=== PATIENT | female | born 1975 | race Asian ===

== ENCOUNTER 2016-11-24 10:00 | Emergency (ER) | payer OTHER ==
[2016-11-24 10:04] VITALS: BP 111/68; PULSE 84; RESP 18; TEMP 98.2; O2SAT 97
--- NOTE | 2016-11-24 10:07 | EDPHY ---
H & P HPI/ROS: CHIEF COMPLAINT: Finger laceration HISTORY OF PRESENT ILLNESS: 41-year-old female with up-to-date tetanus via private vehicle to the ER complaining of acute laceration to her left 5th digit when she picked up a sharp knife at [employer] school this morning. No paresthesia. No sensory or motor deficit PHYSICAL EXAM (Prior to examination, patient consented to physical exam, hands were washed and my usual and customary physical exam procedures followed) 1) GENERAL: Well-developed, well-nourished, alert and oriented. Appears to be in no acute distress. 2) HEAD: Normocephalic 3) HEENT: sclera anicteric 4) LUNGS: Breathing comfortably. 5) SKIN: left 5th digit palmar aspect PIP joint transverse 1 cm laceration 6) MUSCULOSKELETAL: flexor, extensor function independently tested at the MCP, PIP, DIP and no deficits are noted on exam. 7) NEUROLOGIC: Full sensation distally including 2 point discrimination. Smoking Status: Never smoked Constitutional: Initial Vital Signs Temperature (C) 36.8 C 11/24/16 10:01 Heart Rate 84 11/24/16 10:01 Respiratory Rate 18 11/24/16 10:01 Blood Pressure 111/68 11/24/16 10:01 O2 Sat (%) 97 11/24/16 10:01 O2 Delivery Mode Room Air Allergies/Adverse Reactions: No Known Allergies Allergy (Verified 11/24/16 10:01) Home Medications: Medication Instructions Recorded NK [No Known Home Meds] 11/24/16 MDM/Departure - MDM Procedures: Procedure: Laceration repair. I explained the indications, risks and benefits for both laceration repair and anesthetic administration. Verbal consent was obtained from the patient . The laceration on the left 5th digit was anesthetized using 0.5% bupivicaine without epinephrine digital nerve block. After anesthetic administered the patient was observed for a period of time and had no apparent adverse effects. The wound was cleaned, prepped, draped in normal sterile fashion and explored to its base. No foreign body seen, no foreign bodies palpated. There were no deep structures involved. No tendon injury was identified. The wound was repaired with 4 simple interrupted 5 O Prolene suture. The wound repair was simple. The procedure was performed by myself. Patient has been informed that scarring will occur, although efforts have been made to minimize this. - Depart Disposition: Home, Routine, Self-Care Clinical Impression: Finger laceration Qualifiers: Encounter type: initial encounter Qualified Code(s): S61.219A - Laceration without foreign body of unspecified finger without damage to nail, initial encounter Condition: Good Instructions: Care For Your Stitches (ED), Laceration (ED) Additional Instructions: Return to the ER if you develop redness, swelling, discharge, warmth to the wound, red streaks going up your arm or any other symptoms that concern you. Referrals: Return, to the ER in 10 days for suture removal [Other] - 12/04/16
== END 2016-11-24 10:47 | disposition home or self-care (01) ==
PROC: 0HQGXZZ Repair Left Hand Skin, External Approach (ICD-10-PCS; principal; 2016-11-24)
DX: S61.217A Laceration without foreign body of left little finger without damage to nail, initial encounter (principal); W26.0XXA Contact with knife, initial encounter; Y92.218 Other school as the place of occurrence of the external cause

== ENCOUNTER → 2017-02-14 | Outpatient (CLI) | payer OTHER | LOC: FIMAGING 13:25 | PROVIDERS: ATTEND Family Medicine | DX: Z12.31 Encounter for screening mammogram for malignant neoplasm of breast (principal); Z80.3 Family history of malignant neoplasm of breast | CPT/HCPCS: G0202 ==

== ENCOUNTER 2017-03-30 05:40 | Emergency (ER) | payer OTHER ==
[2017-03-30] MEDS ORDERED: NS 1,000 ML IV ONE ×3 (05:54→06:26)
--- NOTE | 2017-03-30 05:56 | EDPHY ---
H & P Time Seen by Provider: 03/30/17 05:46 HPI/ROS: 42 yo F presents c/o diarrhea that began about 90 minutes after eating some Sushi from [employer]. No vomiting, no fever. Pt states she has had diarrhea all night, likely greater than 12 times. She denies blood in her stool. she is not currently on antibiotics. She states she rarely gets diarrhea, no one else at home is sick at this time. Review of systems As per HPI General no fever no chills no weakness HEENT no eye pain no eye discharge. No eye redness, no sore throat Respiratory no cough, no shortness of breath Cardiac no chest pain, no peripheral edema GI pos abdominal pain, positive diarrhea, no constipation, no nausea, no vomiting no flank pain, no hematuria, no dysuria Musculoskeletal no myalgias, no joint pain Heme no easy bruising, no easy bleeding Endo no polyuria, no polydipsia Skin no rashes, no pruritus Neuro no syncope, no dizziness, no headaches Psych is no suicidal ideation, no homicidal ideation Past Medical/Surgical History: gerd Social History: Lives with family No alcohol or drug use Smoking Status: Never smoked Physical Exam: 42-year-old female HEENT atraumatic normocephalic, extraocular muscles intact, anicteric Oropharynx negative for erythema negative exudate, tolerating her own secretions Neck supple no meningismus Lungs clear to auscultation bilaterally Heart regular rate and rhythm without murmur rub or gallop Abdomen nondistended hyperactive bowel sounds soft, mild diffuse tenderness, no rebound no guarding Back no CVA tenderness, no step-offs, no spinal tenderness Extremities no cyanosis clubbing or edema Neuro alert and oriented, no focal deficits Constitutional: Initial Vital Signs Temperature (C) 36.5 C 03/30/17 05:43 Heart Rate 72 03/30/17 05:43 Respiratory Rate 16 03/30/17 05:43 Blood Pressure 116/73 03/30/17 05:43 O2 Sat (%) 95 03/30/17 05:43 O2 Delivery Mode Room Air Allergies/Adverse Reactions: No Known Allergies Allergy (Verified 03/30/17 05:43) Home Medications: Medication Instructions Recorded NK [No Known Home Meds] 11/24/16 Medical Decision Making ED Course/Re-evaluation: Patient seen and evaluated for diarrhea. Differential diagnosis considered Viral enteritis, clostridia difficile, bacterial enteritis, diverticulitis, irritable bowel Labs CBC within normal limits CMP within normal limits Lipase negative Stool studies ordered Patient given IV fluids, Toradol 30. Impression Diarrhea, likely viral Plan Symptomatic care Follow up with primary care physician - Data Points Laboratory Results: Laboratory Results 03/30/17 05:55 03/30/17 05:55 03/30/17 03/30/17 03/30/17 05:55 05:55 05:55 WBC 8.85 10^3/uL 10^3/uL (3.80-9.50) RBC 4.68 10^6/uL 10^6/uL (4.18-5.33) Hgb 13.6 g/dL g/dL (12.6-16.3) Hct 40.9 % % (38.0-47.0) MCV 87.4 fL fL (81.5-99.8) MCH 29.1 pg pg (27.9-34.1) MCHC 33.3 g/dL g/dL (32.4-36.7) RDW 13.2 % % (11.5-15.2) Plt Count 309 10^3/uL 10^3/uL (150-400) MPV 10.2 fL fL (8.7-11.7) Neut % (Auto) 74.8 % H % (39.3-74.2) Lymph % (Auto) 19.1 % % (15.0-45.0) Walsh % (Auto) 5.0 % % (4.5-13.0) Eos % (Auto) 0.3 % L % (0.6-7.6) Baso % (Auto) 0.6 % % (0.3-1.7) Nucleat RBC Rel Count 0.0 % % (0.0-0.2) Absolute Neuts (auto) 6.62 10^3/uL H 10^3/uL (1.70-6.50) Absolute Lymphs (auto) 1.69 10^3/uL 10^3/uL (1.00-3.00) Absolute Monos (auto) 0.44 10^3/uL 10^3/uL (0.30-0.80) Absolute Eos (auto) 0.03 10^3/uL 10^3/uL (0.03-0.40) Absolute Basos (auto) 0.05 10^3/uL 10^3/uL (0.02-0.10) Absolute Nucleated RBC 0.00 10^3/uL 10^3/uL (0-0.01) Immature Gran % 0.2 % % (0.0-1.1) Immature Gran # 0.02 10^3/uL 10^3/uL (0.00-0.10) Sodium 141 mEq/L mEq/L (134-144) Potassium 4.2 mEq/L mEq/L (3.5-5.2) Chloride 106 mEq/L mEq/L (97-110) Carbon Dioxide 22 mEq/l mEq/l (22-31) Anion Gap 13 mEq/L mEq/L (8-16) BUN 12 mg/dL mg/dL (7-23) Creatinine 0.6 mg/dL mg/dL (0.6-1.0) Estimated GFR > 60 Glucose 112 mg/dL H mg/dL (70-100) Calcium 9.2 mg/dL mg/dL (8.5-10.4) Total Bilirubin 0.8 mg/dL mg/dL (0.1-1.4) AST 16 IU/L IU/L (14-46) ALT 30 IU/L IU/L (9-52) Alkaline Phosphatase 68 IU/L IU/L (38-126) Total Protein 7.0 g/dL g/dL (6.3-8.2) Albumin 4.2 g/dL g/dL (3.5-5.0) Lipase 57 IU/L IU/L (23-300) Beta HCG, Qual NEGATIVE Medications Given: Discontinued Medications Sodium Chloride (Ns) 1,000 mls @ 0 mls/hr IV EDNOW ONE; Wide Open PRN Reason: Protocol Stop: 03/30/17 05:55 Last Admin: 03/30/17 05:58 Dose: 1,000 mls Sodium Chloride (Ns) 1,000 mls @ 0 mls/hr IV ONCE ONE; Wide Open PRN Reason: Protocol Stop: 03/30/17 05:56 Last Admin: 03/30/17 05:57 Dose: Not Given Sodium Chloride (Ns) 1,000 mls @ 0 mls/hr IV ONCE ONE PRN Reason: Wide Open Stop: 08/31/17 06:27 Last Admin: 03/30/17 06:35 Dose: 1,000 mls Ketorolac Tromethamine (Toradol) 30 mg IVP EDNOW ONE Stop: 03/30/17 06:26 Last Admin: 03/30/17 06:38 Dose: 30 mg Departure - Departure Disposition: Home, Routine, Self-Care Clinical Impression: Diarrhea Condition: Good Instructions: Acute Diarrhea (ED), Bismuth Subsalicylate (By mouth)
[2017-03-30 06:06] LABS: % IMMATURE GRANULYOCYTES 0.2 % (0.0-1.1); ABSOLUTE IMMATURE GRANULOCYTES 0.02 10^3/uL (0.00-0.10); ADD DIFF? NO; ADD MORPH? NO; ADD SCAN? NO; ATYPICAL LYMPHOCYTE FLAG 0 (0-99); FRAGMENT RBC FLAG 0 (0-99); HEMATOCRIT 40.9 % (38.0-47.0); HEMOGLOBIN 13.6 g/dL (12.6-16.3); LEFT SHIFT FLG 0 (0-99); LIPEMIA HEMOLYSIS FLAG 80 (0-99); MEAN CELL HEMOGLOBIN 29.1 pg (27.9-34.1); MEAN CELL HEMOGLOBIN CONCENTR. 33.3 g/dL (32.4-36.7); MEAN CELL VOLUME 87.4 fL (81.5-99.8); MEAN PLATELET VOLUME 10.2 fL (8.7-11.7); PLATELET CLUMPS FLAG 0 (0-99); PLATELET COUNT 309 10^3/uL (150-400); RED BLOOD CELL COUNT 4.68 10^6/uL (4.18-5.33); RED CELL DISTRIBUTION WIDTH 13.2 % (11.5-15.2)
[2017-03-30 06:18] LABS: ALANINE AMINOTRANSFERASE 30 IU/L (9-52); ALBUMIN 4.2 g/dL (3.5-5.0); ALKALINE PHOSPHATASE 68 IU/L (38-126); ANION GAP 13 mEq/L (8-16); ASPARTATE AMINOTRANSFERASE 16 IU/L (14-46); BILIRUBIN,TOTAL 0.8 mg/dL (0.1-1.4); CALCIUM 9.2 mg/dL (8.5-10.4); CARBON DIOXIDE 22 mEq/l (22-31); CHLORIDE 106 mEq/L (97-110); CREATININE 0.6 mg/dL (0.6-1.0); GLOMERULAR FILTRATION RATE > 60; GLUCOSE 112 mg/dL (70-100); POTASSIUM 4.2 mEq/L (3.5-5.2); SODIUM 141 mEq/L (134-144)
[2017-03-30] MEDS ORDERED: KETOROLAC 30 MG/1 ML SDV IVP ONE (06:25)
[2017-03-30 07:02] VITALS: BP 108/68; PULSE 84; RESP 14; TEMP 98.1; O2SAT 97
[2017-03-30] MEDS ORDERED: ONDANSETRON 4MG PREPACK#2 BTL TAKEHOME ONE (07:02)
== END 2017-03-30 07:01 | disposition home or self-care (01) ==
LOC: CED 05:40
DX: R19.7 Diarrhea, unspecified (principal); E86.9 Volume depletion, unspecified
CPT/HCPCS: 80053-PO; 83690-PO; 84703-PO; 85025-PO; 96374; J1885

== ENCOUNTER 2017-09-05 15:44 | Emergency (ER) | payer OTHER ==
[2017-09-05 15:53] VITALS: RESP 18; TEMP 98; O2SAT 97
--- NOTE | 2017-09-05 16:10 | CPEKG ---
Heart Rate: 59 RR Interval: 1017 P-R Interval: 156 QRSD Interval: 80 QT Interval: 432 QTC Interval: 428 P [place]: 57 QRS [place]: 44 T Wave [place]: 58 EKG Severity - NORMAL ECG - EKG Impression: SINUS RHYTHM Electronically Signed By: Shayy Galvan 05-Sep-2017 19:17:19
--- NOTE | 2017-09-05 16:22 | EDPHY ---
H & P Stated Complaint: c/o HR palpitations x 10 denies CP/SOB HPI/ROS: CHIEF COMPLAINT: Palpitations HISTORY OF PRESENT ILLNESS: This is a healthy 42-year-old who presents with palpitations. These began about 10 days ago while she was at rest. They last a minute or so and occur once daily on average. When she is feeling palpitations she has a sensation of chest pressure. She does not describe chest pain. She does not feel short of breath and the palpitations are relieved by deep breathing. She has not had dizziness. This is a new experience for her. She is not sophia menopausal. She states that she has had a heart murmur since . She was evaluated by Dr. Donis for this a couple of years ago with no subsequent treatments or restrictions. REVIEW OF SYSTEMS: A ten point review of systems was performed and is negative with the exception of the items mentioned in the HPI. 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 She does not use tobacco products. She drinks alcohol socially. General Appearance: Alert. Vital signs reviewed. Blood pressure 98/78. A focused exam was performed. Respiratory: Lungs are clear to auscultation; no wheezes, rales, or rhonchi. Cardiovascular: Regular rate and rhythm; no murmur, rub, or gallop. No heart murmur appreciated. Gastrointestinal: Abdomen is soft and nontender, no masses or organomegaly. Skin: Warm and dry, no rashes on exposed skin, normal color. Extremities: No lower extremity edema. Neurological: Alert and oriented. Moving all four extremities easily and equally. Psychiatric: Normal affect. - Personal History LMP (Females 10-55): 15-21 Days Ago Current Tetanus Diphtheria and Acellular Pertussis (TDAP): Yes - Medical/Surgical History Hx Asthma: No Hx Chronic Respiratory Disease: No Hx Diabetes: No Hx Cardiac Disease: No Hx Renal Disease: No Hx Cirrhosis: No Hx Alcoholism: No Hx HIV/AIDS: No Hx Splenectomy or Spleen Trauma: No Other PMH: Csection . - Social History Smoking Status: Never smoked Constitutional: Initial Vital Signs Temperature (C) 36.6 C 09/05/17 15:51 Heart Rate 63 09/05/17 15:51 Respiratory Rate 18 09/05/17 15:51 Blood Pressure 98/78 L 09/05/17 15:51 O2 Sat (%) 97 09/05/17 15:51 O2 Delivery Mode Room Air Allergies/Adverse Reactions: No Known Allergies Allergy (Verified 03/30/17 05:43) Home Medications: Medication Instructions Recorded NK [No Known Home Meds] 11/24/16 Medical Decision Making - Diagnostics EKG Interpretation: 12 lead EKG is interpreted in Trace master View by emergency department physician. Normal sinus rhythm. ED Course/Re-evaluation: 42-year-old female who reports palpitations. She has a normal EKG in the emergency department. She has scheduled and appointment with her doctor. She does not desire additional emergency department workup. We talked about drawing blood to check electrolytes. She prefers to wait until she sees her PCP. We reviewed the danger signs that should prompt her to be re-evaluated immediately I feel that her approache is reasonable. She is not currently experiencing palpitations and I do not think that she needs emergency department evaluation. Differential Diagnosis: I considered a differential diagnosis that includes palpitations, arrhythmia, electrolyte abnormality, anxiety. Departure - Departure Disposition: Home, Routine, Self-Care Clinical Impression: Palpitations Condition: Good Instructions: Heart Palpitations (ED) Additional Instructions: See Dr. Lara next week as planned. If you have a prolonged episode of a rapid heart rate and began to feel short of breath or have chest pain, you should be re-evaluated. In general, the problem that you describe is not dangerous. However, it is important that you follow up and have this checked out further. Referrals: Estephanie Lara MD [Primary Care Provider] - As per Instructions
[2017-09-05 16:56] VITALS: BP 100/62; PULSE 67
== END 2017-09-05 16:40 | disposition home or self-care (01) ==
LOC: CED 15:44
DX: R00.2 Palpitations (principal)

== ENCOUNTER 2017-11-22 19:01 | Emergency (ER) | payer OTHER ==
[2017-11-22 19:11] VITALS: BP 100/68
--- NOTE | 2017-11-22 19:25 | EDPHY ---
H & P Stated Complaint: got out bed quickly, felt slightly dizzy and hit left side of face. Time Seen by Provider: 11/22/17 19:13 HPI/ROS: CHIEF COMPLAINT: Concussion, eye pain HISTORY OF PRESENT ILLNESS: The patient is a 42-year-old female with a history of low blood pressure who stood up quickly Monday morning felt lightheaded and fell. She hit her forehead and left eyebrow on bridge of her nose on the bed. She did not lose consciousness. She has had a mild headache ever since that improved with ibuprofen. She has felt slightly nauseous but has not vomited. No seizure-like activity. No altered mental status. She has been exercising for the last 2 days. She also has a foreign body sensation in her left eye and thought she might have an eyelash stuck but cannot find one. REVIEW OF SYSTEMS: Constitutional: denies: chills, fever, recent illness, recent injury EENTM: See HPI denies: blurred vision, double vision, nose congestion Respiratory: denies: cough, shortness of breath Cardiac: denies: chest pain, irregular heart rate, lightheadedness, palpitations Gastrointestinal/Abdominal: denies: abdominal pain, diarrhea, nausea, vomiting, blood streaked stools Genitourinary: denies: dysuria, frequency, hematuria, pain Musculoskeletal: denies: joint pain, muscle pain Skin: denies: lesions, rash, jaundice, bruising Neurological: See HPI denies: numbness, paresthesia, tingling, dizziness, weakness Hematologic/Lymphatic: denies: blood clots, easy bleeding, easy bruising Immunologic/allergic: denies: HIV/AIDS, transplant EXAM: GENERAL: Well-appearing, well-nourished and in no acute distress. HEAD: Very minor contusion above left eyebrow, normocephalic. EYES: Pupils equal round and reactive to light, extraocular movements intact, sclera anicteric, conjunctiva are normal. ENT: TMs normal, nares patent, oropharynx clear without exudates. Moist mucous membranes. NECK: Normal range of motion, supple without lymphadenopathy or JVD. LUNGS: Breath sounds clear to auscultation bilaterally and equal. No wheezes rales or rhonchi. HEART: Regular rate and rhythm without murmurs, rubs or gallops. ABDOMEN: Soft, nontender, normoactive bowel sounds. No guarding, no rebound. No masses appreciated. BACK: No CVA tenderness, no spinal tenderness, step-offs or deformities EXTREMITIES: Normal range of motion, no pitting or edema. No clubbing or cyanosis. NEUROLOGICAL: Cranial nerves II through XII grossly intact. Normal speech, normal gait. 5/5 strength, normal movement in all extremities, normal sensation PSYCH: Normal mood, normal affect. SKIN: Warm, dry, normal turgor, no visible rashes or lesions. Source: Patient Exam Limitations: No limitations - Personal History LMP (Females 10-55): 8-14 Days Ago - Medical/Surgical History Hx Asthma: No Hx Chronic Respiratory Disease: No Hx Diabetes: No Hx Cardiac Disease: No Hx Renal Disease: No Hx Cirrhosis: No Hx Alcoholism: No Hx HIV/AIDS: No Hx Splenectomy or Spleen Trauma: No Other PMH: Csection . - Social History Smoking Status: Never smoked Constitutional: Initial Vital Signs Temperature (C) 36.8 C 11/22/17 19:08 Heart Rate 75 11/22/17 19:08 Respiratory Rate 18 11/22/17 19:08 Blood Pressure 100/68 11/22/17 19:08 O2 Sat (%) 98 11/22/17 19:08 O2 Delivery Mode Room Air Allergies/Adverse Reactions: No Known Allergies Allergy (Verified 11/22/17 19:08) Home Medications: Medication Instructions Recorded NK [No Known Home Meds] 11/24/16 Medical Decision Making ED Course/Re-evaluation: Patient has symptoms consistent with concussion. We discussed CT and I offered to perform 1 but she declines. It is been more than 2 days since her injury which is reassuring. 7:30 p.m. I stained the patient's eyes with fluorescein. There is a very faint abrasion that seems to be healing just at the edge of her cornea. I suspect that this is the reason for the foreign body sensation that she has. Antibiotics are unlikely to be helpful at this point because it is already essentially healed. We discussed follow-up and indications for returning. She is pleased and eager to go home. We discussed rest and stepwise return to activity for concussions. Differential Diagnosis: Partial list of the Differential diagnosis considered include but were not limited to; syncope, concussion, corneal abrasion and although unlikely based on the history and physical exam, I also considered fracture, intracranial injury, cervical spine injury, arrhythmia, acute coronary disease. I discussed these differential diagnoses and the plan with the patient as well as the usual and expected course. The patient understands that the diagnosis is provisional and that in medicine we are not always correct and that further workup is often warranted. Usual and customary warnings were given. All of the patient's questions were answered. The patient was instructed to return to the emergency department should the symptoms at all worsen or return, otherwise to followup with the physician as we discussed. Departure - Departure Disposition: Home, Routine, Self-Care Clinical Impression: Concussion Qualifiers: Encounter type: initial encounter Loss of consciousness presence/duration: without LOC Qualified Code(s): S06.0X0A - Concussion without loss of consciousness, initial encounter Condition: Fair Instructions: Concussion (ED) Referrals: Estephanie Lara MD [Primary Care Provider] - As per Instructions
[2017-11-22] MEDS ORDERED: FLUORESCEIN SOD/BENOXINATE HCL 20 DROPS/ML OPHT.BTL ONE ×2 (19:26→19:30)
[2017-11-22] MEDS ORDERED: PROPARACAINE 0.5% 15 ML OPHT DROP ONE (19:27)
== END 2017-11-22 19:43 | disposition home or self-care (01) ==
LOC: CED 19:01
DX: S06.0X0A Concussion without loss of consciousness, initial encounter (principal); W01.198A Fall on same level from slipping, tripping and stumbling with subsequent striking against other object, initial encounter

== ENCOUNTER → 2018-02-26 | Outpatient (CLI) | payer OTHER | LOC: CIMAGING 15:28 | PROVIDERS: ATTEND Family Medicine | DX: R05 Cough (principal); R06.00 Dyspnea, unspecified; R53.83 Other fatigue; R91.1 Solitary pulmonary nodule | CPT/HCPCS: 71046-PO ==

== ENCOUNTER → 2018-05-02 | Outpatient (CLI) | payer OTHER | LOC: CIMAGING 08:00 | PROVIDERS: ATTEND Family Medicine | DX: J98.4 Other disorders of lung (principal) | CPT/HCPCS: 71046-PO ==

== ENCOUNTER → 2018-05-15 | Outpatient (CLI) | payer OTHER | LOC: FIMAGING 08:48 | PROVIDERS: ATTEND Family Medicine | DX: Z12.31 Encounter for screening mammogram for malignant neoplasm of breast (principal); R91.1 Solitary pulmonary nodule; Z80.3 Family history of malignant neoplasm of breast ==

== ENCOUNTER 2018-05-28 22:51 | Emergency (ER) | payer OTHER ==
--- NOTE | 2018-05-28 23:30 | EDPHY ---
H & P Stated Complaint: N/V diffuse abd pain Time Seen by Provider: 05/28/18 23:13 HPI/ROS: CHIEF COMPLAINT: Abrupt onset of nausea and vomiting without diarrhea however, with severe fatigue HISTORY OF PRESENT ILLNESS: This is a previously healthy 43-year-old female who complains of being well at dinner. She only ate a banana as that is her custom to eat very lightly in the evening meal. Furthermore she went to sleep early at 8:30 p.m. As she had a restless night last night. Of note is that the restlessness last night was simply unrelated to [facility] visit as there is no physical symptoms with that. However, she woke up at 9:30 p.m. With a pronounced sense of nausea followed by upper abdominal distress without radiation to the back or the scapula. She subsequent vomited 4 times in the intervening 2 hr - none of this contained any blood like material. There has been no diarrhea. She feels uncharacteristic loosely fatigue as having trouble staying alert and focused. This has never been a problem for her in the past. No one else is sick. No recent travel. Travel: None Others: None Antibiotics: None Bad Food: None Bad Water: None Recent Surgery: None Of note however is that she did spend most the day cooking for a family get- together the making material that she put in the freezer for later preparation P: Not worse with the bumps, upper abdominal distress Q: Burning achy R: No radiation to back or epigastrium S: Mild to moderate, not better with vomiting T: Onset around 9:30 p.m. REVIEW OF SYSTEMS: Constitutional: No fever, no chills. Eyes: No discharge. ENT: No sore throat. Cardiovascular: No chest pain, no palpitations. Respiratory: No cough, shortness of breath, or wheezing. Gastrointestinal: See above Genitourinary: No hematuria or frequency. Musculoskeletal: No back pain. Skin: No rashes. Neurological: No headache, but does have pronounced fatigue. A 10 system review of systems was performed and is negative except for the noted findings in the HPI. Source: Patient Exam Limitations: No limitations - Personal History LMP (Females 10-55): 1-7 Days Ago Current Tetanus/Diphtheria Vaccine: Unsure Current Tetanus Diphtheria and Acellular Pertussis (TDAP): Unsure - Medical/Surgical History Hx Asthma: No Hx Chronic Respiratory Disease: No Hx Diabetes: No Hx Cardiac Disease: No Hx Renal Disease: No Hx Cirrhosis: No Hx Alcoholism: No Hx HIV/AIDS: No Hx Splenectomy or Spleen Trauma: No Other PMH: Csection - Family History Significant Family History: No pertinent family hx - Social History Smoking Status: Never smoked Alcohol Use: None Drug Use: None - Physical Exam Exam: General Appearance: Awake but lays on her side with her eyes closed and only over the exam for brief period time when directed to do so. She states she is having trouble staying fully awake. No distress, her emesis basin is empty at this time. Afebrile. Normal phonation. No respiratory distress. Eyes: Pupils equal and round no pallor or injection. No icterus ENT, Mouth: Mucous membranes slightly dry Pharynx without erythema or exudate. TM Clear. Neck: No adenopathy. Supple. No JVD. Trachea in midline. Respiratory: There are no retractions, lungs are clear to auscultation. Cardiovascular: Regular rate and rhythm, without murmur. Abdomen: Soft nondistended. No masses. There is however tenderness bilateral upper quadrants right more so than the left, with a Leos sign present on the right but no guarding. Neurological: Ox3. No motor weakness. Sensation intact. Gait nl. Skin: Warm and dry, no rashes. Musculoskeletal: No joint swelling. Extremities: No edema. Homans sign negative. No cords. Psychiatric: Normal affect. Patient is oriented X 3. There is no agitation Constitutional: Initial Vital Signs Temperature (C) 36.6 C 05/28/18 23:08 Heart Rate 80 05/28/18 23:08 Respiratory Rate 16 05/28/18 23:08 Blood Pressure 107/66 05/28/18 23:08 O2 Sat (%) 97 05/28/18 23:08 O2 Delivery Mode Room Air Allergies/Adverse Reactions: No Known Allergies Allergy (Verified 11/22/17 19:08) Home Medications: Medication Instructions Recorded Ondansetron Odt [Zofran Odt 4 mg 4 mg PO Q4 PRN #6 tab 05/29/18 (*)] Medical Decision Making - Diagnostics Imaging Results: Imaging Impressions Abdomen Ultrasound 05/29/18 00:15 Impression: 1. Normal sonographic appearance of the gallbladder. 2. There is no bile duct dilatation. 3. There is a simple hepatic cyst in the medial segment of the left hepatic lobe , and a likely-benign echogenic hemangioma in the posterior right hepatic lobe. Follow-up sonography in 6 months is recommended to assure stability of this latter finding. Findings and recommendations were discussed with Mckinley Torres MD at 1:06, on 05/29/2018. My ultrasound review: Ultrasound of the abdomen forego limited gallbladder study showed benign cyst with a most likely benign hemangioma that would require 6 month follow-up. However, specifics to tonight's visit there is no signs of gallbladder stones, sludge, edema or ductal dilatation. Interpretation by radiologist. Discussed with radiologist. Imaging: Discussed imaging studies w/ call center support consultant Radiologist ED Course/Re-evaluation: Initial management consisted of the following: A L of normal saline for volume depletion 8 mg of normal saline for nausea with distinct response Forty mEq of potassium liquid, due to her potassium of 3.1 Given the upper abdominal right more so than left discomfort with palpation in a Leos sign a ultrasound of the gallbladder was performed. This was negative as per Radiologist who called me with report, see above. Laboratory studies include the following: Minimally elevated white count of 10.6 Slightly elevated neutrophils Preserved kidney function Hypokalemia with potassium 3.1 Evidently the oral potassium and the fluids worked miraculously. As I entered the room for recheck her she was markedly improved sitting up, wide awake and actually asking me what was it that made her so fatigued earlier. My speculation is the adrenaline surge over stress response from her illness most likely shifted potassium intracellularly and is now normalized as she has improved. Nonetheless her exam remains essentially the same: Abdomen recheck: Bilateral upper quadrant tenderness mild the left mild-to- moderate on the right. Again worse when she takes deep breath. No rebound or guarding. Follow-up potassium after just 40 mg p. O. Showed market rise up to 4.2 reflective of a normalization of the potassium from having been shifted back out of the cell. Thereby, no further potassium testing is necessary. I discussed and outlined the clinical course as expected in the discharge instructions as well as means to avoid contamination of others in the food products that she provided today and finally need for follow-up ultrasound, per her PCP. Differential Diagnosis: Differential diagnosis includes, but is not limited to: Gastroenteritis, dehydration, diverticulitis, hepatitis, pancreatitis, renal colic, kidney stones, ureterolithiasis, cholecystitis, appendicitis, gastritis, mesenteric adenitis, food poisoning, bacterial dysentery. - Data Points Laboratory Results: 05/29/18 05/28/18 05/28/18 01:24 23:30 23:30 POC Sodium 143 mEq/L mEq/L 140 mEq/L mEq/L (135-145) (135-145) POC Potassium 4.2 mEq/L mEq/L 3.1 mEq/L L mEq/L (3.3-5.0) (3.3-5.0) POC Chloride 113.0 mEq/L H mEq/L 109.0 mEq/L mEq/L (97-110) (97-110) POC Total CO2 23 mEq/L mEq/L 24 mEq/L mEq/L (22-31) (22-31) POC BUN 10 mg/dL mg/dL 10 mg/dL mg/dL (7-23) (7-23) POC Creatinine 0.8 mg/dL mg/dL 0.8 mg/dL mg/dL (0.6-1.0) (0.6-1.0) POC Glucose 96 mg/dL mg/dL 98 mg/dL mg/dL (70-100) (70-100) POC Calcium 8.4 mg/dL L mg/dL 9.1 mg/dL mg/dL (8.5-10.4) (8.5-10.4) POC Total Bilirubin 0.9 mg/dL mg/dL 0.9 mg/dL mg/dL (0.1-1.4) (0.1-1.4) POC AST 26 IU/L IU/L 24 IU/L IU/L (14-46) (14-46) POC ALT 17 IU/L IU/L 17 IU/L IU/L (9-52) (9-52) POC Alk Phosphatase 51 IU/L IU/L 57 IU/L IU/L (38-126) (38-126) POC Total Protein 5.9 g/dL L g/dL 6.7 g/dL g/dL (6.3-8.2) (6.3-8.2) POC Albumin 3.4 g/dL L g/dL 3.9 g/dL g/dL (3.5-5.0) (3.5-5.0) Lipase 36 IU/L IU/L (23-300) Medications Given: Discontinued Medications Sodium Chloride (Ns) 1,000 mls @ 0 mls/hr IV EDNOW ONE; Wide Open PRN Reason: Protocol Stop: 05/28/18 23:34 Last Admin: 05/28/18 23:38 Dose: 1,000 mls Ondansetron HCl (Zofran) 8 mg IVP EDNOW ONE Stop: 05/28/18 23:32 Last Admin: 05/28/18 23:38 Dose: 8 mg Ondansetron HCl (Zofran Odt 4 Mg Prepack#2) 1 btl TAKEHOME EDNOW ONE Stop: 05/29/18 01:15 Last Admin: 05/29/18 01:27 Dose: 1 btl Potassium Chloride (Potassium Chloride Oral Liquid) 40 meq PO EDNOW ONE Stop: 05/28/18 23:58 Last Admin: 05/29/18 00:04 Dose: 40 meq Potassium Chloride (Potassium Chloride Oral Liquid) 40 meq PO EDNOW ONE Stop: 05/29/18 01:16 Last Admin: 05/29/18 01:27 Dose: 40 meq Point of Care Test Results: CBC CBC Collection Date 05/28/18 CBC Collection Time 23:23 WBC 10.6 RBC 4.65 HGB 13.5 HCT 40.2 PLT 229 Neut # 8.5 Neut 79.6 LYMPH # 1.6 LYMPH 15.5 Other WBC # 0.5 Other WBC 4.9 MCV 86.5 Chemistry 05/29/18 05/28/18 01:24 23:30 POC Sodium 143 mEq/L mEq/L 140 mEq/L mEq/L (135-145) (135-145) POC Potassium 4.2 mEq/L mEq/L 3.1 mEq/L L mEq/L (3.3-5.0) (3.3-5.0) POC Chloride 113.0 mEq/L H mEq/L 109.0 mEq/L mEq/L (97-110) (97-110) POC Total CO2 23 mEq/L mEq/L 24 mEq/L mEq/L (22-31) (22-31) POC BUN 10 mg/dL mg/dL 10 mg/dL mg/dL (7-23) (7-23) POC Creatinine 0.8 mg/dL mg/dL 0.8 mg/dL mg/dL (0.6-1.0) (0.6-1.0) POC Glucose 96 mg/dL mg/dL 98 mg/dL mg/dL (70-100) (70-100) POC Calcium 8.4 mg/dL L mg/dL 9.1 mg/dL mg/dL (8.5-10.4) (8.5-10.4) POC Total Bilirubin 0.9 mg/dL mg/dL 0.9 mg/dL mg/dL (0.1-1.4) (0.1-1.4) POC AST 26 IU/L IU/L 24 IU/L IU/L (14-46) (14-46) POC ALT 17 IU/L IU/L 17 IU/L IU/L (9-52) (9-52) POC Alk Phosphatase 51 IU/L IU/L 57 IU/L IU/L (38-126) (38-126) POC Total Protein 5.9 g/dL L g/dL 6.7 g/dL g/dL (6.3-8.2) (6.3-8.2) POC Albumin 3.4 g/dL L g/dL 3.9 g/dL g/dL (3.5-5.0) (3.5-5.0) Departure - Departure Disposition: Home, Routine, Self-Care Clinical Impression: Abdominal pain Qualifiers: Abdominal location: upper abdomen, unspecified Qualified Code(s): R10.10 - Upper abdominal pain, unspecified Nausea & vomiting Qualifiers: Vomiting type: unspecified Vomiting Intractability: intractable Qualified Code( s): R11.2 - Nausea with vomiting, unspecified Condition: Good Instructions: Acute Nausea and Vomiting (ED), Abdominal Pain (ED) Additional Instructions: At this point in time everything is pointing toward a norovirus type illness. With that said I expect the following: - Nausea to persist with episodes of vomiting for the next 12 hr. - Thereafter, 12 hr of pronounced loss of appetite with perhaps some nausea. During this time is important to take small amounts of fluid over the course of each hour, such as 1-2 oz every 15 min. - beginning Monday, I expect her symptoms to be completely better however you probably will not have much of an appetite yet. At that time she advanced her diet, through the course of the day, to a full diet by the end of the day. Be cognizant that you are: Highly infectious for 24 hr. Moderately infectious for 4-5 days Slightly infectious for 2 weeks. Up to 4 weeks. Also, you potassium normalized with your treatment. Norovirus can survive freezing as well as temperatures up to 140 when cooking. Thereby consider throwing out all the food made today. While your ultrasound did not show any evidence of gallbladder disease, it did show a small nodule within the liver that is most likely a benign hemangioma however they are recommending a follow-up ultrasound in 6 months. This is to be arranged by her family doctor. Referrals: NONE *PRIMARY CARE P,. [Primary Care Provider] - As per Instructions Prescriptions: Ondansetron Odt [Zofran Odt 4 mg (*)] 4 mg PO Q4 PRN #6 tab PRN Reason: Nausea and Vomiting
[2018-05-28] MEDS ORDERED: ONDANSETRON 4 MG/2 ML VIAL IVP ONE (23:31)
[2018-05-28] MEDS ORDERED: NS 1,000 ML IV ONE (23:33)
[2018-05-28] MEDS ORDERED: POTASSIUM CL 20 MEQ/15 ML UDCUP PO ONE (23:57)
[2018-05-29] MEDS ORDERED: ONDANSETRON 4MG PREPACK#2 BTL TAKEHOME ONE (01:14)
[2018-05-29] MEDS ORDERED: POTASSIUM CL 20 MEQ/15 ML UDCUP PO ONE (01:15)
[2018-05-29] MEDS ORDERED: POTASSIUM CL 20 MEQ/15 ML UDCUP ONE (01:22)
[2018-05-29] MEDS ORDERED: POTASSIUM CL 20 MEQ PKT ONE (01:23)
[2018-05-29 02:15] VITALS: BP 106/72
== END 2018-05-29 02:15 | disposition home or self-care (01) ==
LOC: CED 22:51
DX: R11.2 Nausea with vomiting, unspecified (principal); R10.10 Upper abdominal pain, unspecified; E87.6 Hypokalemia; E86.9 Volume depletion, unspecified; R53.83 Other fatigue; R93.2 Abnormal findings on diagnostic imaging of liver and biliary tract
CPT/HCPCS: 76705-PO; 80053-PO; 96374; J2405

== ENCOUNTER 2018-09-10 16:32 | Emergency (ER) | payer OTHER ==
--- NOTE | 2018-09-10 16:36 | EDPHY ---
H & P Time Seen by Provider: 09/10/18 16:36 HPI/ROS: HPI CHIEF COMPLAINT: "I think I ate some bad fish" HISTORY OF PRESENT ILLNESS: 43-year-old female, otherwise healthy without any significant medical history presents emergency room stating that she thinks she may have ate some bad fish. She reports that she had fish frozen in the freezer and ate this earlier this afternoon. States she ate this around noon. 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 Reports vomiting 4 times. Denies bilious vomiting, denies blood in her vomit. Denies diarrhea denies significant abdominal pain. Denies chest pain or shortness of breath. She reports she had a similar episode in April where she ate the same fish. She arrives to the emergency room by private vehicle her daughter drove her here. Past Medical History: No significant medical history Past Surgical History: No significant surgical history Social History: Lives locally, denies drugs alcohol tobacco. Family History: Noncontributory ROS REVIEW OF SYSTEMS: 10 Systems were reviewed and negative with the exception of the elements mentioned in the history of present illness. Exam Constitutional nontoxic no acute distress triage nursing summary reviewed, vital signs reviewed, awake/alert. Eyes normal conjunctivae and sclera, EOMI, PERRLA. HENT normal inspection, atraumatic, moist mucus membranes, no epistaxis, neck supple/ no meningismus, no raccoon eyes. Respiratory clear to auscultation bilaterally, normal breath sounds, no respiratory distress, no wheezing. Cardiovascular rate normal, regular rhythm, no murmur, no edema, distal pulses normal. Gastrointestinal soft, non-tender, no rebound, no guarding, normal bowel sounds, no distension, no pulsatile mass. Genitourinary no CVA tenderness. Musculoskeletal no midline vertebral tenderness, full range of motion, no calf swelling, no tenderness of extremities, no meningismus, good pulses, neurovascularly intact. Skin pink, warm, & dry, no rash, skin atraumatic. Neurologic awake, alert and oriented x 3, AAOx3, moves all 4 extremities equally, motor intact, sensory intact, CN II-XII intact, normal cerebellar, normal vision, normal speech. Psychiatric normal mood/affect. Heme/Lymph/Immune no lymphadenopathy. Differential Diagnosis: Differential diagnosis includes but is not limited to and in no particular order: GI illness, food-borne illness, viral etiology Bowel obstruction, appendicitis, gallbladder disease, diverticulitis, colitis, enteritis, perforated viscus, gastritis, GERD, esophagitis, urinary tract infection, pyelonephritis, kidney stones Medical Decision Making: Plan for this patient IV establishment IV fluid bolus 2 L normal saline, IV Pepcid 20 mg for GI upset, IV Zofran 4 mg for nausea vomiting, basic blood work, and re-evaluate Re-evaluation: 1826: Patient re-evaluated this time p.o. Challenge well without any nausea vomiting she is feeling much better after IV fluids. Here in the emergency room she presented the emergency room with nausea vomiting after eating fish that was frozen and d-thawed in her freezer. States she had the same issue when doing this before in April. She is feeling much better after IV Zofran and IV Pepcid and 2 L of fluid. She is requesting discharge home. Her CBC, CMP, lipase, urinalysis and urine are all normal. She would like to go home. On re-examination she is not vomiting she feels much better her abdomen is soft nontender. I do recommend bland diet over the next 24-48 hours Return precautions discussed return emergency room if worsening symptoms including vomiting, not doing well abdominal pain she is comfortable this plan. 1921: Re-examination resting comfortably no acute distress feeling much better after IV fluids. She is requesting discharge home. She p.o. Challenge well. Denies any complaints specifically denies chest pain or shortness of breath denies abdominal pain. No further nausea. Like to go home. Discussed return precautions return emergency room if worsening abdominal pain, fever, vomiting. Patient is comfortable this plan. Source: Patient, Family - Medical/Surgical History Hx Asthma: No Hx Chronic Respiratory Disease: No Hx Diabetes: No Hx Cardiac Disease: No Hx Renal Disease: No Hx Cirrhosis: No Hx Alcoholism: No Hx HIV/AIDS: No Hx Splenectomy or Spleen Trauma: No Other PMH: Csection - Social History Smoking Status: Never smoked Constitutional: Initial Vital Signs Temperature (C) 36.4 C 09/10/18 16:34 Heart Rate 82 09/10/18 16:34 Respiratory Rate 16 09/10/18 16:34 Blood Pressure 109/75 09/10/18 16:34 O2 Sat (%) 100 09/10/18 16:34 O2 Delivery Mode Room Air Allergies/Adverse Reactions: No Known Allergies Allergy (Verified 09/10/18 16:33) Home Medications: Medication Instructions Recorded Promethazine HCl 25 mg PO Q6-8PRN PRN #10 tablet 09/10/18 Medical Decision Making - Data Points Laboratory Results: 09/10/18 09/10/18 16:47 16:40 POC Sodium 144 mEq/L mEq/L (135-145) POC Potassium 3.3 mEq/L mEq/L (3.3-5.0) POC Chloride 112.0 mEq/L H mEq/L (97-110) POC Total CO2 25 mEq/L mEq/L (22-31) POC BUN 10 mg/dL mg/dL (7-23) POC Creatinine 0.9 mg/dL mg/dL (0.6-1.0) POC Glucose 93 mg/dL mg/dL (70-100) POC Calcium 9.2 mg/dL mg/dL (8.5-10.4) POC Total Bilirubin 0.9 mg/dL mg/dL (0.1-1.4) POC AST 23 IU/L IU/L (14-46) POC ALT 17 IU/L IU/L (9-52) POC Alk Phosphatase 64 IU/L IU/L (38-126) POC Total Protein 6.8 g/dL g/dL (6.3-8.2) POC Albumin 3.8 g/dL g/dL (3.5-5.0) Lipase 64 IU/L IU/L (23-300) Medications Given: Discontinued Medications Famotidine (Pepcid) 20 mg IVP EDNOW ONE Stop: 09/10/18 16:42 Last Admin: 09/10/18 16:58 Dose: 20 mg Sodium Chloride (Ns) 1,000 mls @ 0 mls/hr IV EDNOW ONE; Wide Open PRN Reason: Protocol Stop: 09/10/18 16:42 Last Admin: 09/10/18 16:45 Dose: 1,000 mls Sodium Chloride (Ns) 1,000 mls @ 0 mls/hr IV EDNOW ONE; Wide Open PRN Reason: Protocol Stop: 09/10/18 16:42 Last Admin: 09/10/18 17:44 Dose: 1,000 mls Ondansetron HCl (Zofran) 4 mg IVP EDNOW ONE Stop: 09/10/18 16:42 Last Admin: 09/10/18 16:56 Dose: 4 mg Promethazine HCl (Phenergan) 6.25 mg IVP ONCE ONE Stop: 09/10/18 18:30 Last Admin: 09/10/18 18:35 Dose: 6.25 mg Point of Care Test Results: CBC CBC Collection Date 09/10/18 CBC Collection Time 16:40 WBC 5.03 RBC 4.71 HGB 13.5 HCT 40.9 PLT 252 Neut # 2.59 Neut 51.5 LYMPH # 2.23 LYMPH 44.3 MCV 86.8 Chemistry 09/10/18 16:47 POC Sodium 144 mEq/L mEq/L (135-145) POC Potassium 3.3 mEq/L mEq/L (3.3-5.0) POC Chloride 112.0 mEq/L H mEq/L (97-110) POC Total CO2 25 mEq/L mEq/L (22-31) POC BUN 10 mg/dL mg/dL (7-23) POC Creatinine 0.9 mg/dL mg/dL (0.6-1.0) POC Glucose 93 mg/dL mg/dL (70-100) POC Calcium 9.2 mg/dL mg/dL (8.5-10.4) POC Total Bilirubin 0.9 mg/dL mg/dL (0.1-1.4) POC AST 23 IU/L IU/L (14-46) POC ALT 17 IU/L IU/L (9-52) POC Alk Phosphatase 64 IU/L IU/L (38-126) POC Total Protein 6.8 g/dL g/dL (6.3-8.2) POC Albumin 3.8 g/dL g/dL (3.5-5.0) Urine Collection Date 09/10/18 Collection Time 18:15 HCG Results Negative Urine Dip Collection Date 09/10/18 Collection Time 18:15 Specific [place] (1.002-1.030) 1.020 PH (5.0-7.5) 7.0 Leukocytes (Negative) Negative Nitrites (Negative) Negative Protein (Negative) Negative Glucose (Negative) Negative Ketones (Negative) Trace Urobilnogen (0.2-1.0 EU) 0.2 Bilirubin (Negative) Negative Blood (Negative) Negative Departure - Departure Disposition: Home, Routine, Self-Care Clinical Impression: Vomiting Qualifiers: Vomiting type: unspecified Vomiting Intractability: non-intractable Nausea presence: with nausea Qualified Code(s): R11.2 - Nausea with vomiting, unspecified Condition: Good Instructions: Acute Nausea and Vomiting (ED) Additional Instructions: 1. [place] diet over the next 24-48 hours no spicy fatty greasy foods 2. Advance her diet slowly 3. Return to the emergency room if you have worsening abdominal pain, fever, vomiting, not doing well 4. Rest. Referrals: NONE *PRIMARY CARE P,. [Primary Care Provider] - As per Instructions Prescriptions: Promethazine HCl 25 mg PO Q6-8PRN PRN #10 tablet PRN Reason: Nausea/Vomiting, Use 1st
[2018-09-10] MEDS ORDERED: NS 1,000 ML IV ONE ×2 (16:41)
[2018-09-10] MEDS ORDERED: ONDANSETRON 4 MG/2 ML VIAL IVP ONE (16:41)
[2018-09-10] MEDS ORDERED: FAMOTIDINE 20 MG/2 ML SDV IVP ONE (16:41)
[2018-09-10] MEDS ORDERED: PROMETHAZINE HCL 25 MG/ML INJ IVP ONE (18:29)
[2018-09-10 19:36] VITALS: BP 90/51
== END 2018-09-10 19:48 | disposition home or self-care (01) ==
LOC: CED 16:32
DX: R11.2 Nausea with vomiting, unspecified (principal); E86.9 Volume depletion, unspecified
CPT/HCPCS: 80053-ER; 96361-ER; 96374-ER; 96375-ER; 99284-ER; J2405; J2550

== ENCOUNTER → 2018-10-05 | Outpatient (CLI) | payer OTHER | LOC: FIMAGING 08:31 | PROVIDERS: ATTEND Obstetrics & Gynecology | DX: N63.11 Unspecified lump in the right breast, upper outer quadrant (principal); N63.13 Unspecified lump in the right breast, lower outer quadrant; N60.01 Solitary cyst of right breast ==

== ENCOUNTER 2018-10-23 05:52 | Day surgery (SDC) | payer OTHER ==
--- NOTE | 2018-10-23 00:26 | GHP ---
[f rep st] PREOP HISTORY AND PHYSICAL DATE OF ADMISSION: 10/23/2018 Surgery scheduled for 10/23/2018 on the gynecology service. HISTORY OF PRESENT ILLNESS: The patient is 43-year-old, G1, P1, who has had years of dysfunctional uterine bleeding. The patient has regular menstrual periods, lasting 3-4 days of normal flow, however, continued spotting for 1-1/2 weeks afterward as well as 2-3 days preceding. The real menstrual flows are approximately 28 days apart. Patient denies any dysmenorrhea. Patient has had evaluation for this in the past and had an endometrial biopsy in September 2017 that showed normal late secretory phase. The patient decided to try a Mirena IUD to decrease the dysfunctional bleeding. Patient has had two attempted placements in November 2017 which were discontinued as the patient could not tolerate dilation of the cervix. U/S in 10/15 shows normal uterus and ovaries bilaterally were normal. As the patient continues to have protracted pattern of bleeding, I recommend morcellation to remove the lining more thoroughly. After the procedure is complete the patient does want a Mirena IUD placed intraoperatively to help reduce further dysfunction bleeding. Risks and benefits of the procedure including hysteroscopy, D and C and possible placement of a Mirena IUD have all been discussed with the patient and consent signed. PAST MEDICAL HISTORY: Dysfunctional uterine bleeding as noted above, GI irritation with common followups with GI office. Fibrocystic breast tissue. The patient has had a breast biopsy. The patient has used DIM and got significant improvement in the breast discomfort, however, discontinued this medicine because it caused hair loss. History of HPV. PAST SURGICAL HISTORY: section in 2002. PAST OBSTETRIC HISTORY: In July 2002, C/S planned in [facility] for term female at 8#11oz ALLERGIES: No known drug allergies. CURRENT MEDICATIONS: Vitamin D, fish oil, turmeric, probiotics, Cytotec for cervical softening. FAMILY HISTORY: The patient has multiple members on her father's side who have had breast cancer as well as stomach cancer. 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 HPV and Pap smear negative in May 2016 and negative Pap smear in June 2017. PHYSICAL EXAM: GENERAL: The patient is a well-developed, well-nourished white female in no distress. LUNGS: Clear to auscultation bilaterally. CARDIOVASCULAR: Regular rate and rhythm. ABDOMEN: Soft and nontender. BREASTS: smal round mobile breast lump at approximately 12:30 on the right breast. The patient is advised to go get an ultrasound to assess the fibrous cystic tissue. Patient has this planned. ABDOMEN: Soft and nontender. PELVIC : Exam done in August 2018. There are no abnormalities in the pelvis. The uterus is small and mobile and nontender. No adnexal masses. Pap smear is deferred. ASSESSMENT: Dysfunctional uterine bleeding, normal ultrasound, and negative endometrial biopsy. PLAN: We will proceed with hysteroscopy. The patient has been given Cytotec to use on the night preceding and on the morning of surgery for cervical ripening. We will perform a hysteroscopy and morcellation as well as removing polyps that are found. Pt desires Mirena IUD placement. Patient will receive preoperative antibiotics. /[id number]/MODL MTDD
[2018-10-23] MEDS ORDERED: ceFAZolin 2 GM/DEXTROSE 100 ML IV ONE (06:05)
[2018-10-23] MEDS ORDERED: LR 1,000 ML IV ONE ×2 (06:06→06:12)
[2018-10-23] MEDS ORDERED: SILVER NITRATE APPLICATOR 1 APPL TP ONE (06:52)
[2018-10-23] MEDS ORDERED: MIDAZOLAM 2 MG/2 ML VIAL IVP ONE (06:54)
--- NOTE | 2018-10-23 06:54 | PDANEPAE ---
ANE History of Present Illness Hysteroscopy, morcellator ANE Past Medical History - Cardiovascular History Hx Hypertension: No Hx Arrhythmias: No Hx Chest Pain: No Hx Coronary Artery / Peripheral Vascular Disease: No Hx CHF / Valvular Disease: No Hx Palpitations: Yes - Pulmonary History Hx COPD: No Hx Asthma/Reactive Airway Disease: No Hx Recent Upper Respiratory Infection: No Hx Oxygen in Use at Home: No Hx Sleep Apnea: No Sleep Apnea Screening Result - Last Documented: Negative Pulmonary History Comment: PNEUMONIA 02/2018 - Neurologic History Hx Cerebrovascular Accident: No Hx Seizures: No Hx Dementia: No - Endocrine History Hx Diabetes: No - Renal History Hx Renal Disorders: No - Liver History Hx Hepatic Disorders: No - Neurological & Psychiatric Hx Hx Neurological and Psychiatric Disorders: No - Cancer History Hx Cancer: No - Congenital Disorder History Hx Congenital Disorders: No - GI History Hx Gastrointestinal Disorders: Yes Gastrointestinal History Comment: GERD. IBS - Other Health History Other Health History: PAST HX -ANEMIA - Chronic Pain History Chronic Pain: No - Surgical History Prior Surgeries: HAND SURGERY CYST R WRIST. C SECTION. BREAST BX R. COLONOSCOPY. WISDOM TEETH ANE Review of Systems Review of systems is: negative Review of Systems: - Exercise capacity METS (RN): 5 METS ANE Patient History - Allergies Allergies/Adverse Reactions: No Known Allergies Allergy (Verified 09/10/18 16:33) - Home Medications Home medications: home medication list seen and reviewed Home Medications: Herbals/Supplements -Info Only 10/15/18 [Last Taken 2 Days Ago ~10/21/18] - NPO status NPO Since - Liquids (Date): 10/22/18 NPO Since - Liquids (Time): 17:00 NPO Since - Solids (Date): 10/22/18 NPO Since - Solids (Time): 17:00 - Anes Hx Anes Hx: no prior problems - Smoking Hx Smoking Status: Never smoked - Family Anes Hx Family Anes Hx: none Family Hx Anesthesia Complications: NEG ANE Labs/Vital Signs - Vital Signs Vital Signs: reviewed preoperatively; see RN documention for details Blood Pressure: 106/76 Heart Rate: 76 Respiratory Rate: 16 O2 Sat (%): 95 Height: 167.64 cm Weight: 65.771 kg ANE Physical Exam - Airway Neck exam: FROM Mallampati Score: Class 1 Mouth exam: normal dental/mouth exam - Pulmonary Pulmonary: no respiratory distress - Cardiovascular Cardiovascular: regular rate and rhythym - ASA Status ASA Status: II ANE Anesthesia Plan Anesthesia Plan: GA w LMA
[2018-10-23] MEDS ORDERED: DEXAMETHASONE 4 MG/ML VIAL ONE (07:12)
[2018-10-23] MEDS ORDERED: LIDOCAINE 2% 100 MG/5 ML SYR ONE (07:12)
[2018-10-23] MEDS ORDERED: ONDANSETRON 4 MG/2 ML VIAL ONE (07:12)
[2018-10-23] MEDS ORDERED: PROPOFOL 200 MG/20 ML VIAL ONE (07:13)
[2018-10-23] MEDS ORDERED: fentaNYL 100 MCG/2 ML INJ ONE ×2 (07:13→09:08)
--- NOTE | 2018-10-23 07:25 | PDHPUP ---
History & Physical Update H&P update statement: This history and physical update is based on an assessment of the patient which was completed after admission or registration (within 24 hours), but prior to the surgery/procedure. H&P update: no change in patient's condition since H&P completed
[2018-10-23] MEDS ORDERED: HYDROCODONE/APAP 5/325 TAB PO PRN (07:43)
[2018-10-23] MEDS ORDERED: ONDANSETRON 4 MG/2 ML VIAL IVP PRN (07:43)
[2018-10-23] MEDS ORDERED: PROMETHAZINE HCL 25 MG/ML INJ IVP PRN (07:43)
[2018-10-23] MEDS ORDERED: ACETAMINOPHEN 500 MG TAB PO PRN (07:43)
[2018-10-23] MEDS ORDERED: NALOXONE HCL 0.4 MG/ML INJ IVP PRN (07:43)
[2018-10-23] MEDS ORDERED: MEPERIDINE 25 MG/0.5 ML AMP IVP PRN (07:43)
[2018-10-23] MEDS ORDERED: oxyCODONE IR 5 MG TAB PO PRN (07:43)
[2018-10-23] MEDS ORDERED: HYDROmorphONE/DILAUDID 2 MG/ML INJ IVP PRN (07:43)
[2018-10-23] MEDS ORDERED: DEXAMETHASONE 4 MG/ML VIAL IVP PRN (07:43)
--- NOTE | 2018-10-23 07:43 | POSTANESTH ---
Post Anesthetic Evaluation Cardiovascular Status: Normal, Stable, Similar to Pre-Op Cond Respiratory Status: Normal, Stable, Similar to Pre-op Cond. Level of Consciousness/Mental Status: Can Participate in Eval, Mildly Sleepy, Arousable Pain Control: Adequate, Prn Tx Ordered Nausea/Vomiting Control: Adequate, Prn Tx Ordered Complications Possibly Related to Anesthesia: None Noted
[2018-10-23] MEDS ORDERED: KETOROLAC 30 MG/1 ML SDV ONE (08:44)
--- NOTE | 2018-10-23 09:03 | POSTOPPROG ---
Post Op Note Date of Operation: 10/23/18 Surgeon: Yanelis Mcnamara Anesthesiologist: Guillermo Mcghee MD Anesthesia: LMA Pre-op Diagnosis: DUB Post-op Diagnosis: same Indication: long hx prolonged spot with nl MP, nl u/s, nl EMBx Procedure: HSC, endometrial currettage with morcellator, Mirena IUD placement Findings: nl cavity, thin lining, very tight int os and slow dilation, u/s needed Inf/Abcess present in the surg proc area at time of surgery?: No Depth: Organ Space EBL: Minimal Complications: none, tight os and u/s used to guide dilators for safety, dil to 6.5 Priti, no deficit on HSC, no evidence of perforation Bowel Protocol: No Clean Closure Performed: No Specimen(s): endometrial currettings
[2018-10-23] MEDS: fentaNYL 100 MCG/2 ML INJ IVP PRN ×2 (09:12→09:24)
[2018-10-23] MEDS ORDERED: HYDROmorphONE/DILAUDID 2 MG/ML INJ ONE (09:37)
[2018-10-23] MEDS ORDERED: HYDROCODONE/APAP 5/325 TAB ONE (11:01)
[2018-10-23 11:22] VITALS: BP 106/63
== END 2018-10-23 11:22 | disposition home or self-care (01) ==
LOC: FSGY 05:52
PROVIDERS: ATTEND Obstetrics & Gynecology
PROC: 0UH98HZ Insertion of Contraceptive Device into Uterus, Via Natural or Artificial Opening Endoscopic (ICD-10-PCS; principal; 2018-10-23 07:15)
PROC: 0UDB8ZX Extraction of Endometrium, Via Natural or Artificial Opening Endoscopic, Diagnostic (ICD-10-PCS; principal; 2018-10-23 07:15)
DX: N93.8 Other specified abnormal uterine and vaginal bleeding (principal); K21.9 Gastro-esophageal reflux disease without esophagitis; K58.9 Irritable bowel syndrome, unspecified
CPT/HCPCS: 58300; 58558; C1782; J0690; J1100; J1170; J1885; J2001; J2250; J2405; J2704; J3010

== ENCOUNTER → 2018-12-11 | Outpatient (CLI) | payer OTHER | LOC: FIMAGING 09:02 | PROVIDERS: ATTEND Family Medicine | DX: K76.89 Other specified diseases of liver (principal) ==